=== PATIENT | female | born 1980 | race American Indian/Alaskan Native ===

== ENCOUNTER 2016-05-08 11:29 | Emergency (ER) | payer MEDICAID, OTHER ==
[2016-05-08 11:45] VITALS: BP 144/77
[2016-05-08 12:34] LABS: CHLORIDE,CL 103 mmol/L (101-111); SODIUM,NA 136 mmol/L (135-145)
--- NOTE | 2016-05-09 15:18 | ER ---
SUBJECTIVE: The patient is a 35-year-old female, who comes in with acute vaginal bleeding. She states she is , she thinks about 2 months, she is unsure, she is scheduled to have her 1st visit this next week. She began to have some cramping and bleeding this morning about 0700 hours. She thinks she is about 8 weeks . She states she has had a normal up to this point, she is unsure of her due date. Her appointment is going to be the of this month for 1st visit. She denies any dysuria, hematuria, bowel changes, melena, BRBPR, or any trauma. Previous to this morning, she had no abdominal discomfort and now she has some cramping down low. No fevers, chills, or shortness of breath. No recent illness. No ENT issues. No bites, stings, or rashes. No recent travel. PAST MEDICAL HISTORY: Previous history of SAB, previous pregnancies, impaired vision and wears glasses, anxiety. CURRENT MEDICATIONS: Include: 1. Calcium 500 mg p.o. b.i.d. 2. vitamins 1 tablet p.o. daily. ALLERGIES: She states she is allergic to tramadol, causes hallucinations. SOCIAL HISTORY: She is here with her . She is a previous tobacco user but quit. No alcohol or drugs. REVIEW OF SYSTEMS: No fever, chills, chest pain, shortness of breath, back pain. No nausea or vomiting. No headache, syncope, near-syncope, ENT issues, neck pain or stiffness, bites, stings or rashes. No bowel or bladder changes. She does have the abdominal cramping and began to have the bleeding as dictated in the HPI. OBJECTIVE: Vital Signs: She is afebrile. Vitals are stable. General: She is pleasant, in no respiratory distress. A and O x3. Good historian. GCS of 15. HEENT: Normocephalic and atraumatic. Mucous membranes are moist. Conjunctivae are clear. Neck: Unremarkable. Chest: Clear. CV: RRR. Abdomen: Mild nonspecific lower tenderness, more subjective than objective. Abdomen: Not acute. It is obese and soft. Back: No CVAT. Extremities: Unremarkable. Skin: Clear. LAB/STUDIES: White count is mildly elevated at 11.2, H and H is 12.6 and 36.3, platelets are normal; differential not remarkable. BMP is quite unremarkable. Quantitative HCG is 10,753. Both abdominal and transvaginal UA was obtained, and it showed no signs of IUP whatsoever. It appears as the patient has had a complete miscarriage. I did sit down and discuss this with the patient and her attendant thoroughly, went through all her labs and workup and advised her that she needs to keep her appointment for care but would move it up to Monday, so that she can get recheck and get labs rechecked as we can make sure her hormones come back down to normal. She took this information fairly well, was a little tearful but otherwise doing well. ASSESSMENT: Spontaneous . PLAN: Call the clinic in the morning and get appointment moved up to Monday morning instead of later and get a recheck, will need blood work to make sure hormones are coming down, stay with family. If bleeding becomes excessive or if she becomes lightheaded, begins to feel faint, she should return. Otherwise, follow up with her primary. Stay very hydrated. Continue with her vitamins. Expect some discharge and possibly some clots for further bleeding over the next day or 2 as her uterus cleaned this self up. I did discuss the possibility of needing a D and C, but this is not likely. [facility] /[id number]
== END 2016-05-08 14:40 | disposition home or self-care (01) ==
LOC: DL.ED 11:29
DX: O03.9 Complete or unspecified spontaneous abortion without complication (principal); F41.9 Anxiety disorder, unspecified; Z88.5 Allergy status to narcotic agent
CPT/HCPCS: 36415; 76801; 76817; 80048; 84702; 85025; 99284

== ENCOUNTER 2016-06-20 10:52 | Emergency (ER) | payer MEDICAID, OTHER ==
[2016-06-20] MEDS ORDERED: Sodium Chloride 0.9% 10 ML Syringe FLUSH PRN (11:00)
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
[2016-06-20] MEDS ORDERED: Iopamidol 612 MG/ML 100 ML Bottle IVPUSH ONE (11:04)
[2016-06-20] MEDS ORDERED: MVI, Adult with Vitamin K 10 ML, Thiamine 100 MG, Folic Acid 1 MG in Lactated Ringers 1... IV ONE ×4 (11:21)
[2016-06-20 11:36] LABS: CHLORIDE,CL 111 mmol/L (101-111); SODIUM,NA 143 mmol/L (135-145)
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
[2016-06-20] MEDS ORDERED: Lidocaine 1% 30 ML SDV INJECT ONE (12:06)
[2016-06-20] MEDS ORDERED: Diphtheria,Pertussis(Acell),Tetanus Vaccine 0.5 ML SDV IM ONE (12:06)
[2016-06-20] MEDS ORDERED: Bacitracin Oint 1 GM U/D Packet TOP ONE (12:06)
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
== END 2016-06-20 13:45 | disposition home or self-care (01) ==
LOC: DL.ED 10:52
DX: S01.81XA Laceration without foreign body of other part of head, initial encounter (principal); S30.810A Abrasion of lower back and pelvis, initial encounter; S60.512A Abrasion of left hand, initial encounter; S60.511A Abrasion of right hand, initial encounter; S80.212A Abrasion, left knee, initial encounter; S80.211A Abrasion, right knee, initial encounter; F10.120 Alcohol abuse with intoxication, uncomplicated; T14.8 Other injury of unspecified body region; F41.9 Anxiety disorder, unspecified; E66.9 Obesity, unspecified; Z79.899 Other long term (current) drug therapy; Z87.891 Personal history of nicotine dependence; Z88.5 Allergy status to narcotic agent; V59.9XXA Occupant (driver) (passenger) of pick-up truck or van injured in unspecified traffic accident, initial encounter
CPT/HCPCS: 12011; 36415; 70450; 71260; 72125; 74177; 80053; 80305; 81001; 81025; 82150; 82550; 83690; 85025; 85610; 85730; 90715; 96365; 96372; 99285; G0480; J3411; J7050; J7120; Q9967; J3490

== ENCOUNTER 2016-10-20 00:58 | Emergency (ER) | payer MEDICAID ==
[2016-10-20 01:08] VITALS: BP 130/68
--- NOTE | 2016-10-20 01:29 | EDM.PDOC ---
ED HPI GENERAL MEDICAL PROBLEM - General Chief Complaint: General Stated Complaint: IN BY AMBULANCE Time Seen by Provider: 10/20/16 01:25 Source of Information: Reports: Patient, Family History Limitations: Reports: No Limitations - History of Present Illness INITIAL COMMENTS - FREE TEXT/NARRATIVE: family wants to check because she's been out drinking came home fell hitting head ? LOC. pt states fell hitting left head was LOC. 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 Psychiatric History: Reports: Anxiety Endocrine/Metabolic History: Reports: Obesity/BMI 30+ Social & Family History - Family History Family Medical History: Noncontributory - Tobacco Use Smoking Status *Q: Former Smoker Second Hand Smoke Exposure: Yes - Caffeine Use Caffeine Use: Reports: Soda - Alcohol Use Days Per Week of Alcohol Use: 5 Number of Drinks Per Day: 2 Total Drinks Per Week: 10 - Recreational Drug Use Recreational Drug Use: No - Living Situation & Occupation Living situation: Reports: with Family Occupation: Unemployed ED ROS GENERAL - Review of Systems Review Of Systems: ROS reveals no pertinent complaints other than HPI. ED EXAM, GENERAL - Physical Exam Exam: See Below Exam Limited By: No Limitations General Appearance: Alert, WD/WN, Mild Distress, Other (tearful.) Eye Exam: Bilateral Eye: PERRL (pupils ess ER @ 4mm) Ears: Hearing Grossly Normal Throat/Mouth: Normal Voice, No Airway Compromise Head: Facial Swelling, Other (left parietal region, no O/B.) Neck: Non-Tender, Full Range of Motion Respiratory/Chest: No Respiratory Distress Cardiovascular: Regular Rate, Rhythm GI/Abdominal: Soft, Non-Tender Neurological: Alert, Oriented, Normal Cognition, No Motor/Sensory Deficits Psychiatric: Flat Affect, Tearful Skin Exam: Warm, Dry, Normal Color Lymphatic: No Adenopathy Course - Vital Signs Last Recorded V/S: Last Vital Signs Temp 36.3 C 10/20/16 01:07 Pulse 103 H 10/20/16 01:07 Resp 20 10/20/16 01:07 BP 130/68 10/20/16 01:07 Pulse Ox 95 10/20/16 01:07 - Orders/Labs/Meds Labs: Laboratory Tests 10/20/16 10/20/16 Range/Units 01:25 01:25 WBC 6.1 (5.0-10.0) 10^3/uL RBC 4.25 (4.2-5.4) 10^6/uL Hgb 14.0 (12.0-16.0) g/dL Hct 42.4 (37.0-47.0) % MCV 99.8 (80-100) fL MCH 32.9 (27.0-34.0) pg MCHC 33.0 (33.0-35.0) g/dL Plt Count 334 (150-450) 10^3/uL Neut % (Auto) 30.6 L (42.2-75.2) % Lymph % (Auto) 59.0 H (20.5-50.1) % [place] % (Auto) 6.9 (2-8) % Eos % (Auto) 3.0 (1.0-3.0) % Baso % (Auto) 0.5 (0.0-1.0) % Sodium 146 H (135-145) mmol/L Potassium 4.8 (3.6-5.0) mmol/L Chloride 112 H (101-111) mmol/L Carbon Dioxide 22.0 (21.0-31.0) mmol/L Anion Gap 16.8 BUN 5 L (7-18) mg/dL Creatinine 0.9 (0.6-1.3) mg/dL Est Cr Clr Drug Dosing 61.47 mL/min Estimated GFR (MDRD) > 60 BUN/Creatinine Ratio 5.55 Glucose 94 (74-105) mg/dL Calcium 9.2 (8.4-10.2) mg/dl Total Bilirubin 0.2 (0.2-1.0) mg/dL AST 96 H (10-42) IU/L ALT 94 H (10-60) IU/L Alkaline Phosphatase 143 H (42-121) IU/L Total Protein 8.1 (6.7-8.2) g/dl Albumin 3.0 L (3.2-5.5) g/dl Globulin 5.1 Albumin/Globulin Ratio 0.59 HCG, Qual Negative Ethyl Alcohol 311 mg/dL Departure - Departure Time of Disposition: 02:00 Disposition: Against Medical Advice 07 Condition: Fair Clinical Impression: Alcohol abuse Alcohol intoxication Qualifiers: Complication of substance-induced condition: uncomplicated Qualified Code(s): F10.920 - Alcohol use, unspecified with intoxication, uncomplicated - Discharge Information Forms: ED Department Discharge
[2016-10-20 01:53] LABS: CHLORIDE,CL 112 mmol/L (101-111); SODIUM,NA 146 mmol/L (135-145)
== END 2016-10-20 02:02 | disposition left against medical advice (07) ==
LOC: DL.ED 00:58
DX: F10.120 Alcohol abuse with intoxication, uncomplicated (principal); F41.9 Anxiety disorder, unspecified; E66.9 Obesity, unspecified; Z68.37 Body mass index [BMI] 37.0-37.9, adult; Z87.891 Personal history of nicotine dependence; Z79.899 Other long term (current) drug therapy; Z88.5 Allergy status to narcotic agent; Y90.8 Blood alcohol level of 240 mg/100 ml or more; W01.10XA Fall on same level from slipping, tripping and stumbling with subsequent striking against unspecified object, initial encounter
CPT/HCPCS: 36415; 80053; 84703; 85025; 99283; G0480